=== PATIENT | female | born 1990 | race Hispanic/Latino ===

== ENCOUNTER 2020-06-27 18:28 | Emergency (ER) | payer OTHER ==
[2020-06-27 19:37] LABS: Absolute Lymphocytes (CBC) 3.7 K/uL (0.7-4.9); Basophils % 0.7 % (0-1.3); Hematocrit 38.8 % (36.0-45.0); Lymphocytes % 32.7 % (15.3-44.8); RBC Red Blood Cell Count 4.29 M/uL (3.86-4.86)
[2020-06-27] MEDS ORDERED: ONDANSETRON 4 MG/2 ML VIAL ONE (19:47)
[2020-06-27] MEDS ORDERED: NA CHLORIDE 0.9% 1,000 ML ONE (19:47)
[2020-06-27] MEDS ORDERED: KETOROLAC 30 MG/ML INJ ONE (19:47)
[2020-06-27 19:54] LABS: Albumin 3.6 g/dL (3.4-5.0); Bilirubin Direct 0.2 mg/dL (0-0.2); Bilirubin Total 0.5 mg/dL (0.2-1.0); Potassium 3.7 mmol/L (3.5-5.1); Protein, Total 7.5 g/dL (6.4-8.2)
--- NOTE | 2020-06-27 20:02 | ER ---
Nurse's Notes [facility] Name: Saranya Manuel Age: 29 yrs Sex: Female : 1990 Arrival Date: 06/27/2020 Time: 18:34 Bed 8 Private MD: Diagnosis: Diarrhea, unspecified;Lower abdominal pain, unspecified Presentation: 06/27 18:42 Chief complaint: Patient states: Abd pain since Thursday with diarrhea. No fever.. ll1 Coronavirus screen: Client denies travel out of the [place] in the last 14 days. At this time, the client does not indicate any symptoms associated with coronavirus-19. Ebola Screen: Patient denies travel to an Ebola-affected area in the 21 days before illness onset. Initial Sepsis Screen: Does the patient meet any 2 criteria? No. Patient's initial sepsis screen is negative. Does the patient have a suspected source of infection? Yes: Acute abdominal pain. Risk Assessment: Do you want to hurt yourself or someone else? Patient reports no desire to harm self or others. Onset of symptoms was June 23, 2020. 18:42 Method Of Arrival: Ambulatory 1 18:42 Acuity: KENYA 3 ll1 Triage Assessment: 20:31 General: Appears in no apparent distress. General: Behavior is calm, cooperative. Pain: rv Complains of pain in abdomen. GI: Abdomen is flat. Historical: - Allergies: 18:43 No Known Allergies; ll1 - PMHx: 20:27 None; sg - PSHx: 18:43 None; ll1 - Immunization history:: Flu vaccine is not up to date. - Social history:: Smoking status: Patient denies any tobacco usage or history of. Screenin:31 Abuse screen: Denies threats or abuse. Denies injuries from another. Nutritional rv screening: No deficits noted. Tuberculosis screening: No symptoms or risk factors identified. Fall Risk None identified. Assessment: 19:32 Reassessment: Patient appears in no apparent distress at this time. Patient and/or sg family updated on plan of care and expected duration. Pain level reassessed. 20:32 GI: Bowel sounds present X 4 quads. Abd is soft and non tender X 4 quads. Abd is non rv tender X 4 quads. Vital Signs: 18:42 BP 124 / 58; Pulse 81; Resp 16; Temp 98.2; Pulse Ox 97% ; Weight 58.97 kg; Height 5 ft. ll1 5 in. (165.10 cm); Pain 6/10; 20:20 BP 120 / 71; Pulse 77; Resp 18; Pulse Ox 100% on R/A; sg 18:42 Body Mass Index 21.63 (58.97 kg, 165.10 cm) ll1 ED Course: 18:34 Patient arrived in ED. mr 18:40 Tracy Stout F[facility]-C [facility]. kb 18:40 Estelle Philip MD is Attending Physician. kb 18:43 Triage completed. ll1 18:43 Arm band placed on Patient placed in an exam room, on a stretcher. ll1 19:14 Jeff Merrill, GUILLERMO is Primary Nurse. rv 19:20 Initial lab(s) drawn, by ut, sent to lab. Inserted saline lock: 22 gauge in left sg antecubital area, using aseptic technique. Blood collected. 19:30 Patient has correct armband on for positive identification. Placed in gown. Bed in low rv position. Call light in reach. 19:30 Pulse ox on. NIBP on. rv 20:32 No provider procedures requiring assistance completed. IV discontinued, intact, rv bleeding controlled, No redness/swelling at site. Pressure dressing applied. Administered Medications: 19:40 Drug: TORadol - Ketorolac 15 mg Route: IVP; Site: left antecubital; sg 20:26 Follow up: Response: No adverse reaction; Pain is decreased sg 19:40 Drug: NS 0.9% 1000 ml Route: IV; Rate: 1000 ml; Site: left antecubital; sg 19:44 Drug: Zofran (Ondansetron) 4 mg Route: IVP; Site: left antecubital; sg 20:26 Follow up: Response: No adverse reaction; Nausea is decreased sg Outcome: 20:02 Discharge ordered by . kb 20:32 Patient left the ED. sg Signatures: Tracy Stout FNP-C FNP-Dileep Rangel RN RN sg Heidy Hardy mr Jeff Merrill, RN GUILLERMO rv Michael Mares RN RN ll1
--- NOTE | 2020-06-27 20:03 | EDPHYS ---
Physician Documentation [facility] Name: Saranya Manuel Age: 29 yrs Sex: Female : 1990 Arrival Date: 06/27/2020 Time: 18:34 Bed 8 Private MD: ED Physician Estelle Philip HPI: 06/27 19:42 This 29 yrs old Female presents to ER via Ambulatory with complaints of kb Abdominal Pain. 19:42 The patient presents with abdominal pain in the left lower quadrant. Onset: The kb symptoms/episode began/occurred 4 day(s) ago. The symptoms do not radiate. Associated signs and symptoms: Pertinent positives: diarrhea, Pertinent negatives: nausea and vomiting, fever. The symptoms are described as constant. Modifying factors: The symptoms are alleviated by nothing, the symptoms are aggravated by nothing. Severity of pain: At its worst the pain was mild moderate in the emergency department the pain is unchanged. The patient has not experienced similar symptoms in the past. The patient has not recently seen a physician. Historical: - Allergies: 18:43 No Known Allergies; ll1 - PMHx: 20:27 None; sg - PSHx: 18:43 None; ll1 - Immunization history:: Flu vaccine is not up to date. - Social history:: Smoking status: Patient denies any tobacco usage or history of. ROS: 19:42 Constitutional: Negative for fever, chills, and weight loss, Cardiovascular: Negative kb for chest pain, palpitations, and edema, Respiratory: Negative for shortness of breath, cough, wheezing, and pleuritic chest pain, Back: Negative for injury and pain, MS/Extremity: Negative for injury and deformity, Skin: Negative for injury, rash, and discoloration, Neuro: Negative for headache, weakness, numbness, tingling, and seizure. 19:42 Abdomen/GI: Positive for abdominal pain, diarrhea, Negative for nausea and vomiting. Exam: 19:42 Constitutional: This is a well developed, well nourished patient who is awake, alert, kb and in no acute distress. Head/Face: Normocephalic, atraumatic. Chest/axilla: Normal chest wall appearance and motion. Nontender with no deformity. No lesions are appreciated. Cardiovascular: Regular rate and rhythm with a normal S1 and S2. No gallops, murmurs, or rubs. Normal PMI, no JVD. No pulse deficits. Respiratory: Lungs have equal breath sounds bilaterally, clear to auscultation and percussion. No rales, rhonchi or wheezes noted. No increased work of breathing, no retractions or nasal flaring. Abdomen/GI: Soft, non-tender, with normal bowel sounds. No distension or tympany. No guarding or rebound. No evidence of tenderness throughout. Skin: Warm, dry with normal turgor. Normal color with no rashes, no lesions, and no evidence of cellulitis. MS/ Extremity: Pulses equal, no cyanosis. Neurovascular intact. Full, normal range of motion. Neuro: Awake and alert, GCS 15, oriented to person, place, time, and situation. Cranial nerves II-XII grossly intact. Motor strength 5/5 in all extremities. Sensory grossly intact. Cerebellar exam normal. Normal gait. Vital Signs: 18:42 BP 124 / 58; Pulse 81; Resp 16; Temp 98.2; Pulse Ox 97% ; Weight 58.97 kg; Height 5 ft. ll1 5 in. (165.10 cm); Pain 6/10; 20:20 BP 120 / 71; Pulse 77; Resp 18; Pulse Ox 100% on R/A; sg 18:42 Body Mass Index 21.63 (58.97 kg, 165.10 cm) ll1 MDM: 18:44 Patient medically screened. kb 19:41 Data reviewed: vital signs, nurses notes. Data interpreted: Pulse oximetry: on room air kb is 97 %. Interpretation: normal. 20:01 Counseling: I had a detailed discussion with the patient and/or guardian regarding: the kb historical points, exam findings, and any diagnostic results supporting the discharge/admit diagnosis, lab results, radiology results, the need for outpatient follow up, a family practitioner, to return to the emergency department if symptoms worsen or persist or if there are any questions or concerns that arise at home. 06/27 19:06 Order name: Urine Dipstick--Ancillary (enter results) 06/27 19:06 Order name: Urine --Ancillary (enter results) 06/27 19:11 Order name: Basic Metabolic Panel; Complete Time: 20:01 kb 06/27 19:11 Order name: CBC with Diff; Complete Time: 20:01 kb 06/27 19:11 Order name: Hepatic Function; Complete Time: 20:01 kb 06/27 19:11 Order name: Lipase; Complete Time: 20:01 kb 06/27 19:11 Order name: IV Saline Lock; Complete Time: 19:31 kb 06/27 19:11 Order name: Labs collected and sent; Complete Time: 19:31 kb Administered Medications: 19:40 Drug: TORadol - Ketorolac 15 mg Route: IVP; Site: left antecubital; sg 20:26 Follow up: Response: No adverse reaction; Pain is decreased sg 19:40 Drug: NS 0.9% 1000 ml Route: IV; Rate: 1000 ml; Site: left antecubital; sg 19:44 Drug: Zofran (Ondansetron) 4 mg Route: IVP; Site: left antecubital; sg 20:26 Follow up: Response: No adverse reaction; Nausea is decreased sg Disposition: 06/27/20 20:02 Discharged to Home. Impression: Diarrhea, unspecified, Lower abdominal pain, unspecified. - Condition is Stable. - Discharge Instructions: Food Choices to Help Relieve Diarrhea, Adult, Abdominal Pain, Adult, [id number], Diarrhea, Adult, [id number]. - Prescriptions for Bentyl 20 mg Oral Tablet - take 1 tablet by ORAL route every 6 hours As needed; 20 tablet. - Medication Reconciliation Form, Thank You Letter, Antibiotic Education, Prescription Opioid Use, Work release form form. - Follow up: Emergency Department; When: As needed; Reason: Worsening of condition. Follow up: Private Physician; When: 2 - 3 days; Reason: Recheck today's complaints, Continuance of care, Re-evaluation by your physician. Signatures: Dispatcher [employer] EDCT Tracy Stout, LIFE ENRICHMENT SPECIALIST-C LIFE ENRICHMENT SPECIALIST-Dileep Rangel RN RN Michael Owens RN RN ll1 Corrections: (The following items were deleted from the chart) 20:32 20:02 06/27/2020 20:02 Discharged to Home. Impression: Diarrhea, unspecified; Lower sg abdominal pain, unspecified. Condition is Stable. Forms are Medication Reconciliation Form, Thank You Letter, Antibiotic Education, Prescription Opioid Use. Follow up: Emergency Department; When: As needed; Reason: Worsening of condition. Follow up: Private Physician; When: 2 - 3 days; Reason: Recheck today's complaints, Continuance of care, Re-evaluation by your physician. kb
[2020-06-27 20:30] LABS: Urine Blood TRACE (NEG); Urine Glucose NEGATIVE (NEG); Urine Protein NEGATIVE (NEG); Urine pH 5.5 (5.0-7.0)
[2020-06-27 21:00] VITALS: TEMP 98.2
[2020-06-27 21:01] VITALS: BP 120/71; O2SAT 100
== END 2020-06-27 20:32 | disposition home or self-care (01) ==
LOC: ER 18:28
DX: R19.7 Diarrhea, unspecified (principal)
CPT/HCPCS: 85025; 80048; 36415; 81025; 80076; 81003; 83690; 96375; 96374; 99284; J7030; J2405

== ENCOUNTER 2021-04-21 20:05 | Emergency (ER) | payer OTHER, SELFPAY ==
--- OUTSIDE RECORDS SUMMARY | 2021-04-21 20:29 | XMS REPORT | Continuity of Care Document ---
:1990 Author Organization [facility] t Address [address] [place] [address] Care Team Providers Name Role Phone Unavailable Unavailable Unavailable Payers Payer Name Policy Type Policy Number Effective Date Expiration Date S ource Problems This patient has no known problems. Allergies, Adverse Reactions, Alerts Allergy Allergy Status Severity Reaction(s) Onset Inactive Treating Comm ents Source Name Type Date Date Clinician No Known DA Active U [facility] Allergie 2-16 s 00:00: [address] Medications This patient has no known medications. Procedures This patient has no known procedures. Results This patient has no known results.
[2021-04-21 21:48] LABS: Urine Blood Trace-intact (Negative); Urine Glucose Negative (Negative); Urine Protein Negative (Negative); Urine Specific Gravity >=1.030 (1.005-1.030); Urine pH 5.5 (5.0-7.0)
[2021-04-21 22:04] LABS: Urine Specific Gravity/Preg >1.030 (1.005-1.030)
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
[2021-04-22 00:29] VITALS: BP 105/65; TEMP 98.9; O2SAT 97
== END 2021-04-22 00:22 | disposition left against medical advice (07) ==
LOC: ER 20:05
DX: Z53.21 Procedure and treatment not carried out due to patient leaving prior to being seen by health care provider (principal)
CPT/HCPCS: 81003; 81025; 99281

== ENCOUNTER 2023-03-27 00:01 | Emergency (ER) | payer SELFPAY ==
--- OUTSIDE RECORDS SUMMARY | 2023-03-27 00:24 | XMS REPORT | Continuity of Care Document ---
:1990 Author Organization Formerly [facility] t Address [address] [place] [address] [place] [id number] Care Team Providers Name Role Phone JOLLY BARTLETT Primary Care Physician Unavailable Jolly Perez Attending Clinician JOLLY BARTLETT Attending Clinician Unavailable Kaykay Silveira Attending Clinician [phone] KAYKAY HALL Attending Clinician Unavailable Doctor Unassigned, [place] Attending Clinician Unavailable Payers Payer Name Policy Type Policy Number Effective Date Expiration Date S [facility] MEDICAID PENDING PENDING 2021 2021 00:00:00 00:00:00 Problems Condition Condition Condition Status Onset Resolution Last Treating Co mments Source Name Details Category Date Date Treatment Clinician Date 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 - it y of 00:00: [address] Disease Active 2005-08 Uni vers with with 1-25 [place]y [place] [facility] Disease Active 2005-08 Uni vers examinatio examinatio 09-24 it y of n or test, [place] positive 00 Medica l result result Branch Allergies, Adverse Reactions, Alerts Allergy Allergy Status Severity Reaction(s) Onset Inactive Treating Comm ents Source Name Type Date Date Clinician No Known DA Active U [facility] [place] [facility] 00:[facility]: [address] NO KNOWN Drug Active Univers ALLERGIE Class ity of S [facility] Social History Social Habit Start Date Stop Date Quantity Comments Source ASSERTION 2021-09-02 University 00:00:00 [facility] Exposure to Not sure University of SARS-CoV-2 [facility] (event) Branch Alcohol intake 2021-11-18 2021-11-18 Ex-drinker [facility] 00:00:00 00:00:00 (finding) [facility] Tobacco use and 2021-10-21 2021-10-21 Never used Universit y of exposure 00:00:00 00:00:00 [facility] Sex Ass[birth year] At [birth year] Universit y of 00:00:00 00:00:00 [facility] Smoking Status Start Date Stop Date Source Never smoker [facility] Medications Ordered Filled Start Stop Current Ordering Indication Dosage Frequency Signature Comments Components Source Medication Medication Date Date Medication? Clinician (SIG) Name Name No known No Univers medications 3-21 ity of 09:29: [address] No known No Univers medications 3-21 ity of 09:29: [address] No known 2021-0 No Univers medications 3-21 ity of 09:29: [address] No known 0 No Univers medications 3-21 ity of 09:29: [address] MACROBID 2006-08- No take one Univ ers 100 MG ORAL 10-02 tab twice it y of CAP 00:00: 00:00 daily for [place] 00 :00 seven days [facility] Immunizations Ordered Filled Immunization Date Status Comments Sourc e Immunization Name Name SARS-COV-2 COVID-19 2021-09-25 Completed Unive rsity of PFIZER VACCINE 00:00:00 [facility] SARS-COV-2 COVID-19 2021-09-25 Completed Unive rsity of PFIZER VACCINE 00:00:00 [facility] SARS-COV-2 COVID-19 2021-09-25 Completed Unive rsity of PFIZER VACCINE 00:00:00 [facility] SARS-COV-2 COVID-19 2021-09-25 Completed Unive rsity of PFIZER VACCINE 00:00:00 [facility] SARS-COV-2 COVID-19 2021-09-25 Completed Unive rsity of PFIZER VACCINE 00:00:00 [facility] Vital Signs Vital Name Observation Time Observation Value Comments Source Systolic blood 2021-11-18 14:06:00 108 mm[Hg] Univer sity of pressure [facility] Diastolic blood 2021-11-18 14:06:00 70 mm[Hg] Unive rsity of pressure [facility] Heart rate 2021-11-18 14:06:00 77 /min Universi ty [facility] Body temperature 2021-11-18 14:06:00 36.39 Rosalia Univ ersity of [facility] Respiratory rate 2021-11-18 14:06:00 18 /min Univ ersity of [facility] Body height 2021-11-18 14:06:00 165.1 cm [facility] ty [facility] Body weight 2021-11-18 14:06:00 62.823 kg [facility] BMI 2021-11-18 14:06:00 23.05 kg/m2 [facility] Systolic blood 2021-10-21 14:58:00 103 mm[Hg] Univer sity of pressure [facility] Diastolic blood 2021-10-21 14:58:00 67 mm[Hg] Unive rsity of pressure [facility] Heart rate 2021-10-21 14:58:00 69 /min Univers ty [facility] Body temperature 2021-10-21 14:58:00 36.56 Rosalia Univ ersity of [facility] Respiratory rate 2021-10-21 14:58:00 16 /min Univ ersity of [facility] Body height 2021-10-21 14:58:00 165.1 cm [facility] ty [facility] Body weight 2021-10-21 14:58:00 63.368 kg [facility] BMI 2021-10-21 14:58:00 23.25 kg/m2 [facility] Procedures Procedure Date / Time Performed Performing Clinician [facility] POCT URINALYSIS 2021-11-18 14:07:00 Jolly Bartlett [facility] GLUCOSE 1 HOUR POST 2021-10-21 16:24:00 [facility] CBC WITH DIFF 2021-10-21 16:24:00 Jolly Bartlett [facility] RUBELLA SCREEN IGG 2021-10-21 16:24:00 Jolly Bartlett [facility] VZV ANTIBODY SCREEN 2021-10-21 16:24:00 Jolly Bartlett [facility] HEPATITIS B SURFACE 2021-10-21 16:24:00 [facility] HB ABO GROUPING 2021-10-21 16:24:00 Jolly Bartlett [facility] URINE CULTURE 2021-10-21 16:24:00 Jolly Bartlett [facility] HIV 1/2 AG-AB WITH 2021-10-21 16:24:00 Jolly Bartlett [facility] GALV ONLY - SYPHILIS 2021-10-21 16:24:00 Jolly Bartlett [facility] IGG/IGM [facility] POCT URINALYSIS W/O 2021-10-21 15:03:00 Jolly Bartlett [facility] SPECIFIC GRAVITY [facility] POCT TEST 2021-10-21 15:02:00 Jolly Bartlett [facility] Encounters Start End Encounter Admission Attending Care Care Encounter Source Date/Time Date/Time Type Type Clinicians Facility Department ID 2022-01-03 2022-01-03 Telephone TODD Bartlett [id number] [facility] 00:00:00 00:00:00 Jessicaa R BLOCK OPERATOR [id number] ity of REGIONAL [id number] Luis Antonio as MATERNAL [id number] Med ical & CHILD [address] [place] [address] 2022-01-01 2022-01-01 Outpatient Anoop BARTLETT [facility] [id number] Univers 13:00:00 13:00:00 JESSICAA mary janey o [facility] 2021-12-19 2021-12-19 [facility] [id number] Univers 10:30:00 10:30:00 JOLLY hintony o [facility] 2021-12-16 2021-12-16 [facility] [id number] Univers 08:45:00 08:45:00 JOLLY hintony o [facility] 2021-12-09 2021-12-09 Telephone [facility] [id number] Univers 00:00:00 00:00:00 Kaykay C BLOCK OPERATOR [id number] ity of REGIONAL [id number] Luis Antonio as MATERNAL [id number] Med ical & CHILD [address] [place] [address] 2021-11-19 2021-11-19 Outpatient Anoop BARTLETT [facility] [id number] Univers 08:45:00 08:45:00 JESSICAA mary janey o [facility] 2021-11-19 2021-11-19 Outpatient Anoop BARTLETT [facility] [id number] Univers 08:45:00 08:45:00 ORLANDONDA ity o [facility] 2021-11-18 2021-11-18 Outpatient R [facility] [id number] Univers 09:00:00 09:29:24 KAYKAY ity o [facility] 2021-11-18 2021-11-18 Routine [facility] [id number] Univers 09:00:00 09:29:24 Kaykay C BLOCK OPERATOR [id number] ity of Visit REGIONAL [id number] Luis Antonio as MATERNAL [id number] Med ical & CHILD [address] [place] [address] 2021-10-21 2021-10-21 [facility] [id number] Univers 08:30:00 09:44:23 [facility] barb o [facility] 2021-10-21 2021-10-21 Initial Jolly Bartlett Anoop [facility] [id number] Univers 08:30:00 09:44:23 AkinKaykay pena BLOCK OPERATOR [id number] ity of Visit [facility] [id number] Luis Antonio as MATERNAL [id number] [facility] & [address] 2021-10-21 2021-10-21 Outpatient Anoop BARTLETT [facility] [id number] Univers 08:30:00 09:44:23 [facility] 2021-10-21 2021-10-21 [facility] [id number] Univers 08:30:00 09:44:23 [facility] 2021-10-21 2021-10-21 Orders Doctor NICHOLE [id number] Univers 00:00:00 00:00:00 Only Unassigned, WIL[place] [id number] ity of [place] [facility] [id number] Luis Antonio as [id number] [address] Results Test Description Test Time Test Comments Results Result Comments Source POCT URINALYSIS W SPECIFIC GRAVITY 2021-11-18 14:07:00 Test Item Value Reference Range Interpretation Comme nts POCT U SP GRAV (test code = 3255) . 1.005-1.025 POCT PH U (test code = 3254) . 5-8 POCT U LEUK EST (test code = 3263) . Negative - Negative POCT U NIT (test code = 3262) . Negative - Negative POCT U PROT (test code = 3259) 1+ Negative - Negative POCT U GLU (test code = 3256) Neg Negative - Negative POCT U KETONE (test code = 3258) . Negative - Negative POCT U UROBILI (test code = 3260) . 0.2-1 POCT U BILI (test code = 3261) . Negative - Negative POCT U BLD (test code = 3257) . Negative - Negative POCT U COLOR (test code = 3266) POCT U APPEAR (test code = 3267) [facility] SPECIFIC [id number] 14:07:00 Test Item Value Reference Range Interpretation Comments POCT U SP GRAV (test code = 3255) . 1.005-1.025 POCT PH U (test code = 3254) . 5-8 POCT U LEUK EST (test code = 3263) . Negative - Negative POCT U NIT (test code = 3262) . Negative - Negative POCT U PROT (test code = 3259) 1+ Negative - Negative POCT U GLU (test code = 3256) Neg Negative - Negative POCT U KETONE (test code = 3258) . Negative - Negative POCT U UROBILI (test code = 3260) . 0.2-1 POCT U BILI (test code = 3261) . Negative - Negative POCT U BLD (test code = 3257) . Negative - Negative POCT U COLOR (test code = 3266) POCT U APPEAR (test code = 3267) [facility] (MYRIAM) [id number] 16:44:26 Test Item Value Reference Range Interpretation Comments Rubella screen IgG Positive Negative (test code = 0584724252) OPAL (test code = OPAL) Positive - Indicates the patient was exposed to Rubella through infection or vaccination.Negative - Indicates the patient could be susceptible to Rubella infection.Equivocal - A second specimen should be sent. [facility] [id number] 16:44:26 Test Item Value Reference Range Interpretation Comments VZV IgG antibody Positive Negative (test code = 07168-9) OPAL (test code = OPAL) Positive - Indicates the patient was exposed to VZV through infection or vaccination.Negative - Indicates the patient could be susceptible to VZV infection.Equivocal - A second specimen should be sent for testing. [facility] [place] [id number] 15:27:18 Test Item Value Reference Range Interpretation Comments Syphilis IgG/IgM (test Non-reactive Non-reactive code = 72649-0) OPAL (test code = OPAL) Non-reactive - No serologic evidence of T. pallidum infection. Cannot exclude incubating or early syphilis. Submit a second specimen in 2-4 weeks if syphilis is clinically suspected. Equivocal - Further testing to follow. Reactive - Further testing to follow. Lab Interpretation (test Normal code = 20101-9) [facility] WORKUP, BLOOD [id number] 09:23:49 Test Item Value Reference Range Interpretation Comments ABO & RH (test code A POSITIVE Performe d at [facility] = 20) Laboratory Serv [facility]3 01 [facility] s [id number] Free: [phone] A No. [id number] IAT (test code = Negative Performed a t [facility] 1185) Laboratory Serv [facility] 01 [facility] s [id number] Free: [phone] A No. [id number] [facility]/2 AG-AB WITH [id number] 08:03:10 Test Item Value Reference Range Interpretation Comments HIV Negative Negative Semi-quantitative (test code = 35986-3) OPAL (test code = Non-reactive for HIV-1 OPAL) antigen and HIV-1/HIV-2 antibodies. ?No laboratory evidence of HIV infection. ?Repeat in 2-4 weeks if acute HIV infection is suspected. [facility] CenterHEPATITIS B SURFACE [id number] 07:08:48 Test Item Value Reference Range Interpretation Comments HBsAg Semi-Quantitative (test code = Negative Negative 5195-3) [facility] 1 HOUR POST [id number] 06:38:02 Test Item Value Reference Range Interpretation Comments GLUC 1 HR (test code = 0168633140) 102 mg/dL 120-170 L Lab Interpretation (test code = Abnormal 92359-2) [facility] CenterCB WITH [id number] 06:26:37 Test Item Value Reference Range Interpretation Comments WBC (test code = See_Comment [Automated 6690-2) message] The sy stem which generated this result transmitted reference range : 4.30 - 11.10 10*3/?L. The reference range was not used to interpret this result as normal/abnormal . RBC (test code = See_Comment [Automated 789-8) message] The sy stem which generated this result transmitted reference range : 3.93 - 5.25 10*6/?L. The reference range was not used to interpret this result as normal/abnormal . HGB (test code = 13.4 g/dL 11.6-15.0 718-7) HCT (test code = 40.1 % 35.7-45.2 4544-3) MCV (test code = 89.3 fL 80.6-95.5 787-2) MCH (test code = 29.8 pg 25.9-32.8 785-6) MCHC (test code = 33.4 g/dL 31.6-35.1 786-4) RDW-SD (test code = 39.9 fL 39.0-49.9 07372-3) RDW-CV (test code = 12.2 % 12.0-15.5 788-0) PLT (test code = See_Comment [Automated 777-3) message] The sy stem which generated this result transmitted reference range : 166 - 358 10*3/ ?L. The reference r mae was not used to interpret this result as normal/abnormal . MPV (test code = 11.6 fL 9.5-12.9 54157-1) NRBC/100 WBC (test See_Comment [Automat ed code = 7104788807) message] The system which generated this result transmitted reference range : 0.0 - 10.0 /100 WBCs. The refer ence range was not u sed to interpret th is result as normal/abnormal . NRBC x10^3 (test code <0.01 See_Comment [Auto mated = 0208234103) message] The s ystem which generated this result transmitted reference range : 10*3/?L. The reference range was not used to interpret this result as normal/abnormal . GRAN MAT (NEUT) % 71.8 % (test code = 770-8) IMM GRAN % (test code 0.30 % = 7359133033) LYMPH % (test code = 20.2 % 736-9) MONO % (test code = 5.6 % 5905-5) EOS % (test code = 1.6 % 713-8) BASO % (test code = 0.5 % 706-2) GRAN MAT x10^3(ANC) 7.91 10*3/uL 1.88-7.09 H (test code = 8289802189) IMM GRAN x10^3 (test 0.03 10*3/uL 0.00-0.06 code = 3882676570) LYMPH x10^3 (test code 2.23 10*3/uL 1.32-3.29 = 731-0) MONO x10^3 (test code 0.62 10*3/uL 0.33-0.92 = 742-7) EOS x10^3 (test code = 0.18 10*3/uL 0.03-0.39 711-2) BASO x10^3 (test code 0.05 10*3/uL 0.01-0.07 = 704-7) Lab Interpretation Abnormal (test code = 35146-0) [facility] CenterPO[facility] URINAL[facility] W/O SPECIFIC [id number] 15:05:00 Test Item Value Reference Range Interpretation Comments POCT PH U (test code = 3254) 6 mg/dl 5-8 POCT U LEUK EST (test code = trace Negative - Negative 3263) POCT U NIT (test code = 3262) neg Negative - Negative POCT U PROT (test code = 3259) 1+ Negative - Negative POCT U GLU (test code = 3256) neg Negative - Negative POCT U KETONE (test code = 3258) neg Negative - Negative POCT U BLD (test code = 3257) large Negative - Negative [facility]PO[facility] [id number] 15:03:00 Test Item Value Reference Range Interpretation Comments POCT PREG (test code = 1605) Positive On board controls acceptable with C Yes Line (test code = 3574) POCT PREG LOT # (test code = 3575) POCT PREG TEST DATE (test code = 3576) [facility] Notes Date/Time Note Provider Source 2019-03-09 09:29:00-00:00 [facility] ([facility]) EMERGENCY PROVIDER REPORT REPORT#:[id number] REPORT STATUS: Signed DATE:03/09/19 TIME: 928 PATIENT: BERNADINE TOWNSEND UNIT #: [id number] ROOM/BED: AGE: 28 SEX: F PCP PHYS: Hernandez Stack MD SERVICE AUTHOR: Javier Macedo NP LOCATION: [facility] * ALL edits or amendments must be made on the Ohmx/computer document * HPI-Sore Throat General Confirmed Patient Yes Initial Greet Date/Time 03/09/19 09 Presentation Chief Complaint Sore throat, Pain with swallowin g Hx Obtained From Patient Onset Occurred Days ago (2) Symptom Duration Since onset Progression since Onset Constant Location Pharynx, Tonsil R, Tonsil L Severity: Onset Moderate Severity: Current Moderate Associated with Denies: Choking, Cough, Fever, Neck pain , Reduced oral intake, Restricted neck movement, Rhinorrhea, Swelling, neck, Swelling, tongue. Free Text HPI Notes Free Text HPI Notes 28 F with no PMHx c/o sore throat x 2 days with pain with swallowing. Denies fever or neck pain or sick contact at home. Review of Systems ROS Statements All systems rev neg except as marked. Focused Review of Systems Constitutional Denies: Chills, Fatigue, Fever, Lethargy, [place], Recent wt loss, Weakness - generalized. Ears/Nose/Throat Reports: Sore throat. Denies: Earache R, Earache L. Respiratory Denies: Cough, productive, Shortness of breath, Wheezing. GI Denies: Abdominal pain, Diarrhea, Nausea, Vomiti ng. Musculoskeletal Denies: Back pain, Extremity pain. Skin Denies: Diaphoresis, Rash. Neurologic Denies: Change LOC, Dizziness, Focal weakness, H eadache, Numbness, Slurred speech. Past Medical History - Adult Stated Complaint SORE THROAT Allergies Coded Allergies: No Known Allergies (10/16/11) Home Medications Reported Medications No Known Home Medications Review of Nursing Notes Rev avail, and agree (re veiwed) Physical Exam Vital Signs Vital Signs First Documented: Result Date Time Pulse Ox 98 03/09 941 B/P 106/73 03/09 941 B/P Mean 84 03/09 941 O2 Delivery Room air 03/09 941 Temp 36.8 03/09 941 Pulse 86 03/09 941 Resp 16 03/09 941 Last Documented: Result Date Time Pulse Ox 98 03/09 0941 B/P 106/73 03/09 09 B/P Mean 84 03/09 0941 O2 Delivery Room air 03/09 941 Temp 36.8 03/09 09 Pulse 86 03/09 941 Resp 16 03/09 09 Review of Vital Signs Reviewed Focused PE General/Const General/Const Awake, Alert, Cooperative, Not to xic appearing Ears/Nose/Throat Pharynx/Tonsils/Uvula Pharyngeal erythema, Tonsillar erythema R, Tons illar erythema L, Tonsillar exudate R, Tonsillar exudate L, Tonsillar swelli ng R. Negative: Peritonsil abscess R, Peritonsil abscess L, Trismus present , Epiglottis enlarged. MS Neck Neck Supple, No meningismus, Full range of rabia on Resp/Chest Respiratory/Chest No wheezing, No retractions Cardiovascular Cardiovascular Regular rhythm, Cap refi ll not delayed, Peripheral circulation NL Abdomen/GI Abdomen/GI Soft, BS normoactive, No distention Lymphatic Adenopathy Anterior cervical R, Anterior cervical L. Skin Skin Color NL, No rash Neurologic Neurologic Oriented X3, Speech NL Interpretation Diagnostics Lab Results Interpretation Results Microbiology: Date/Time Procedure - Status Source Growth 03/09 930 Group A Streptococcus Screen (SHANIA) - RECD THROAT Re-Evaluation MDM ED Course Medication(s) Ordered Medication(s) Ordered: Eye, Ear, Nose And Throat (Een Sig/Yumi Start time Last Medication Dose Route Stop Time Status Admin Dexamethasone Sodium 10 MG X1ED STA 03/09 933 DC 03/09 Phosphate IM 03/09 0934 0950 Patient Discharge Departure Vital Signs/Condition Vital Signs First Documented: Result Date Time Pulse Ox 98 03/09 0941 B/P 106/73 03/09 941 B/P Mean 84 03/09 0941 O2 Delivery Room air 03/09 941 Temp 36.8 03/09 941 Pulse 86 03/09 941 Resp 16 03/09 941 Last Documented: Result Date Time Pulse Ox 98 03/09 0941 B/P 106/73 03/09 0941 B/P Mean 84 03/09 0941 O2 Delivery Room air 03/09 941 Temp 36.8 03/09 941 Pulse 86 03/09 941 Resp 16 03/09 941 All vital signs available at the time of this en try have been reviewed. Clinical Impression Clinical Impression Primary Impression: Tonsillitis Disposition Decision Discharge )( Discharged to Home Yes )( Time 09 )( Date 03/09/19 Discharge/Care Plan Counseled Regarding Diagnosi s, Prescriptions, Need for follow-up, When to return to ED Prescriptions amox motrin Electronically Signed by Javier Macedo NP on 03/09 at 1009 RPT #:[id number] END OF REPORT 2019-03-09 09:29:00-00:00 [facility] ([facility] EMERGENCY PROVIDER REPORT REPORT#:[id number] REPORT STATUS: Signed DATE:03/09/19 TIME: 928 PATIENT: BERNADINE TOWNSEND UNIT #: [id number] ROOM/BED: AGE: 28 SEX: F PCP PHYS: Hernandez Stack MD SERVICE AUTHOR: Javier Macedo NP LOCATION: [facility] * ALL edits or amendments must be made on the Ohmx/computer document * HPI-Sore Throat General Confirmed Patient Yes Initial Greet Date/Time 03/09/19925 Presentation Chief Complaint Sore throat, Pain with swallowin g Hx Obtained From Patient Onset Occurred Days ago (2) Symptom Duration Since onset Progression since Onset Constant Location Pharynx, Tonsil R, Tonsil L Severity: Onset Moderate Severity: Current Moderate Associated with Denies: Choking, Cough, Fever, Neck pain , Reduced oral intake, Restricted neck movement, Rhinorrhea, Swelling, neck, Swelling, tongue. Free Text HPI Notes Free Text HPI Notes 28 F with no PMHx c/o sore throat x 2 days with pain with swallowing. Denies fever or neck pain or sick contact at home. Review of Systems ROS Statements All systems rev neg except as marked. Focused Review of Systems Constitutional Denies: Chills, Fatigue, Fever, Lethargy, Malais e, Recent wt loss, Weakness - generalized. Ears/Nose/Throat Reports: Sore throat. Denies: Earache R, Earache L. Respiratory Denies: Cough, productive, Shortness of breath, Wheezing. GI Denies: Abdominal pain, Diarrhea, Nausea, Vomiti ng. Musculoskeletal Denies: Back pain, Extremity pain. Skin Denies: Diaphoresis, Rash. Neurologic Denies: Change LOC, Dizziness, Focal weakness, H eadache, Numbness, Slurred speech. Past Medical History - Adult Stated Complaint SORE THROAT Allergies Coded Allergies: No Known Allergies (10/16/11) Home Medications Reported Medications No Known Home Medications Review of Nursing Notes Rev avail, and agree (re veiwed) Physical Exam Vital Signs Vital Signs First Documented: Result Date Time Pulse Ox 98 / 0941 B/P 106/73 03/09 0941 B/P Mean 84 / 0941 O2 Delivery Room air 03/09 941 Temp 36.8 / 0941 Pulse 86 / 0941 Resp 16 03/09 0941 Last Documented: Result Date Time Pulse Ox 98 / 0941 B/P 106/73 / 0941 B/P Mean 84 / 0941 O2 Delivery Room air 03/09 941 Temp 36.8 / 0941 Pulse 86 / 0941 Resp 16 03/09 0941 Review of Vital Signs Reviewed Focused PE General/Const General/Const Awake, Alert, Cooperative, Not to xic appearing Ears/Nose/Throat Pharynx/Tonsils/Uvula Pharyngeal erythema, Tonsillar erythema R, Tons illar erythema L, Tonsillar exudate R, Tonsillar exudate L, Tonsillar swelli ng R. Negative: Peritonsil abscess R, Peritonsil abscess L, Trismus present , Epiglottis enlarged. MS Neck Neck Supple, No meningismus, Full range of rabia on Resp/Chest Respiratory/Chest No wheezing, No retractions Cardiovascular Cardiovascular Regular rhythm, Cap refi ll not delayed, Peripheral circulation NL Abdomen/GI Abdomen/GI Soft, BS normoactive, No distention Lymphatic Adenopathy Anterior cervical R, Anterior cervical L. Skin Skin Color NL, No rash Neurologic Neurologic Oriented X3, Speech NL Interpretation Diagnostics Lab Results Interpretation Results Microbiology: Date/Time Procedure - Status Source Growth 03/09 930 Group A Streptococcus Screen (SHANIA) - RECD THROAT Re-Evaluation MDM ED Course Medication(s) Ordered Medication(s) Ordered: Eye, Ear, Nose And Throat (Een Sig/Yumi Start time Last Medication Dose Route Stop Time Status Admin Dexamethasone Sodium 10 MG X1ED STA 03/09 933 DC 03/09 Phosphate IM 03/09 934 0950 Patient Discharge Departure Vital Signs/Condition Vital Signs First Documented: Result Date Time Pulse Ox 98 03/09 941 B/P 106/73 03/09 941 B/P Mean 84 03/09 0941 O2 Delivery Room air 03/09 941 Temp 36.8 03/09 941 Pulse 86 03/09 941 Resp 16 03/09 941 Last Documented: Result Date Time Pulse Ox 98 03/09 941 B/P 106/73 03/09 941 B/P Mean 84 03/09 09 O2 Delivery Room air 03/09 941 Temp 36.8 03/09 09 Pulse 86 03/09 09 Resp 16 03/09 941 All vital signs available at the time of this en try have been reviewed. Clinical Impression Clinical Impression Primary Impression: Tonsillitis Disposition Decision Discharge )( Discharged to Home Yes )( Time 0949 )( Date 03/09/19 Discharge/Care Plan Counseled Regarding Diagnosi s, Prescriptions, Need for follow-up, When to return to ED Prescriptions amox motrin Electronically Signed by Javier Macedo NP on 03/09 at 1009 Electronically Signed by Bjorn Gary MD on 02/28 12/17 at 1400 RPT #:[id number] END OF REPORT
[2023-03-27 00:39] LABS: Absolute Lymphocytes (CBC) 3.5 K/uL (0.7-4.9); Hematocrit 38.3 % (36.0-45.0); Lymphocytes % 38.8 % (15.3-44.8); MCV 89.4 fL (80-100); MPV 8.3 fL (7.6-11.3); RBC Red Blood Cell Count 4.29 M/uL (3.86-4.86)
[2023-03-27 00:47] LABS: Specific Gravity 1.018 (1.005-1.030); Urine Bacteria None Seen /HPF (<20); Urine Bilirubin NEGATIVE (Negative); Urine Blood 3+ (OVER) (Negative); Urine Clarity Clear (Clear); Urine Color Light-Yellow (Yellow); Urine Glucose NEGATIVE (Negative); Urine Mucus Slight /HPF (None Seen); Urine Protein NEGATIVE (Negative); Urine RBC >50 /HPF (None Seen); Urine Urobilinogen Normal (Normal); Urine pH 6.5 (5.0-7.0)
[2023-03-27 00:54] LABS: Potassium 3.7 mEq/L (3.5-5.1)
--- NOTE | 2023-03-27 02:26 | EDPHYS ---
Physician Documentation [facility] Name: Saranya Benavidez Age: 32 yrs Sex: Female : 1990 Arrival Date: 03/27/2023 Time: 00:01 Bed IW2 Private MD: ED Physician Ariel Paulino HPI: 03/27 00:30 This 32 yrs old Female presents to ER via Ambulatory with complaints of cp IRREGULAR MENSTRUAL CYCLE. 00:30 The patient presents with vaginal bleeding that is heavy, with no clots. Onset: The cp symptoms/episode began/occurred today. Associated signs and symptoms: The patient has no apparent associated signs or symptoms. Severity of symptoms: in the emergency department the symptoms are unchanged, despite home interventions. The patient's method of control includes nothing. Patient reports heavy vaginal bleeding with passage of clots and concerned that bleeding started today even though she had a regular menstrual cycle about 2 weeks ago. 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 - Social history:: Smoking status: Patient denies any tobacco usage or history of. ROS: 00:35 Constitutional: Negative for body aches, chills, fever, poor PO intake. cp 00:35 Eyes: Negative for injury, pain, redness, and discharge. cp 00:35 Cardiovascular: Negative for chest pain, palpitations. 00:35 Respiratory: Negative for cough, shortness of breath, wheezing. 00:35 Abdomen/GI: Negative for abdominal pain, vomiting, diarrhea, constipation. 00:35 : Positive for vaginal bleeding, Negative for urinary symptoms. 00:35 Neuro: Negative for altered mental status, dizziness, headache, syncope, weakness. 00:35 All other systems are negative. Exam: 00:40 Constitutional: The patient appears in no acute distress, alert, awake, comfortable, cp non-toxic, well developed, well nourished. 00:40 Head/Face: Normocephalic, atraumatic. cp 00:40 Eyes: Periorbital structures: appear normal, Conjunctiva: normal, no exudate, no injection, Sclera: no appreciated abnormality, Lids and lashes: appear normal, bilaterally. 00:40 ENT: External ear(s): are unremarkable, Nose: is normal, Mouth: Lips: moist, Oral mucosa: moist, Posterior pharynx: is normal, airway is patent, no erythema, no exudate. 00:40 Chest/axilla: Inspection: normal. 00:40 Cardiovascular: Rate: normal, Rhythm: regular. 00:40 Respiratory: the patient does not display signs of respiratory distress, Respirations: normal, no use of accessory muscles, no retractions, labored breathing, is not present, Breath sounds: are clear throughout, no decreased breath sounds, no stridor, no wheezing. 00:40 Abdomen/GI: Exam negative for discomfort, distension, guarding, Inspection: abdomen appears normal. 00:40 Back: pain, is absent, ROM is normal. 00:40 Neuro: Orientation: to person, place \T\ time. Mentation: is normal, Motor: moves all fours, strength is normal, Gait: is steady, at a normal pace, without difficulty. Vital Signs: 00:13 BP 102 / 66; Pulse 60; Resp 16; Temp 98.2(O); Pulse Ox 100% ; Weight 68.04 kg; Height 5 kl ft. 5 in. ; Pain 5/10; 02:32 BP 118 / 64; Pulse 77; Resp 16; Pulse Ox 99% on R/A; kl 00:13 Body Mass Index 24.96 (68.04 kg, 165.1 cm) kl 00:13 Pain Scale: Adult kl MDM: 00:17 Patient medically screened. cp 01:00 Differential diagnosis: ectopic , molar preganancy, Neoplasm vaginosis. cp 02:25 Data reviewed: vital signs, nurses notes, lab test result(s), radiologic studies, cp ultrasound. 02:25 Counseling: I had a detailed discussion with the patient and/or guardian regarding: the cp historical points, exam findings, and any diagnostic results supporting the discharge/admit diagnosis, lab results, radiology results, the need for outpatient follow up, an OB/Gyne specialist, to return to the emergency department if symptoms worsen or persist or if there are any questions or concerns that arise at home. 03/27 00:20 Order name: Basic Metabolic Panel; Complete Time: 01:02 cp 03/27 01:03 Interpretation: Reviewed. cp 03/27 00:20 Order name: CBC with Diff; Complete Time: 01:02 cp 03/27 00:20 Order name: Urinalysis w/ reflexes; Complete Time: 01:02 cp 03/27 01:03 Interpretation: Normal except: UBLD 3+ (OVER); URBC >50. cp 03/27 00:20 Order name: Test, Serum; Complete Time: 01:07 cp 03/27 01:07 Interpretation: Reviewed. cp 03/27 00:20 Order name: US Pelvis Complete cp 03/27 00:20 Order name: IV Saline Lock; Complete Time: 00:39 cp 03/27 00:20 Order name: Labs collected and sent; Complete Time: 00:39 cp 03/27 00:20 Order name: NPO; Complete Time: 00:39 cp Administered Medications: No medications were administered Disposition Summary: 03/27/23 02:25 Discharge Ordered Location: Home cp Problem: new cp Symptoms: are unchanged cp Condition: Stable cp Diagnosis - Other specified abnormal uterine and vaginal bleeding cp Followup: cp - With: Cristina Lin MD - When: 1 week - Reason: Recheck today's complaints Followup: cp - With: Cristina Lin MD - When: 1 week - Reason: symptoms continue Discharge Instructions: - Discharge Summary Sheet cp - Abnormal Uterine Bleeding cp Forms: - Medication Reconciliation Form cp - Thank You Letter cp - Antibiotic Education cp - Prescription Opioid Use cp - Patient Portal Instructions cp Addendum: 03/30/2023 09:59 Co-signature as Attending Physician, Ariel Paulino MD I reviewed the patient's care r t provided by the Advanced Practice Provider and agree with the diagnosis and treatment plan. Signatures: Dispatcher [employer] Ladi Belle RN RN Juan Still PA PA cp Ariel Paulino MD MD rt
--- NOTE | 2023-03-27 02:26 | ER ---
Nurse's Notes [facility] Name: Saranya Benavidez Age: 32 yrs Sex: Female : 1990 Arrival Date: 03/27/2023 Time: 00:01 Bed IW2 Private MD: Diagnosis: Other specified abnormal uterine and vaginal bleeding Presentation: 03/27 00:13 Chief complaint: Patient states: "I came to get checked out because I have had my kl period twice this month and I am passing blood clots." pt reports abdominal cramping. Pt states going through 2 pads per hour. Coronavirus screen: Vaccine status: Patient reports receiving the 2nd dose of the covid vaccine. Ebola Screen: No symptoms or risks identified at this time. Initial Sepsis Screen: Does the patient meet any 2 criteria? No. Patient's initial sepsis screen is negative. Does the patient have a suspected source of infection? No. Patient's initial sepsis screen is negative. Risk Assessment: Do you want to hurt yourself or someone else? Patient reports no desire to harm self or others. Onset of symptoms was March 27, 2023. 00:13 Method Of Arrival: Ambulatory kl 00:13 Acuity: KENYA 3 kl Triage Assessment: 00:16 General: Appears in no apparent distress. comfortable, Behavior is calm, cooperative. kl Pain: Complains of pain in suprapubic area. 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 - Social history:: Smoking status: Patient denies any tobacco usage or history of. Screenin:32 [facility] ED Fall Risk Assessment (Adult) History of falling in the last 3 months, including since admission No falls in past 3 months (0 pts) Confusion or Disorientation No (0 pts) Intoxicated or Sedated No (0 pts) Impaired Gait No (0 pts) Mobility Assist Device Used No (0 pt) Altered Elimination No (0 pt). Abuse screen: Denies threats or abuse. Nutritional screening: No deficits noted. Tuberculosis screening: No symptoms or risk factors identified. Assessment: 02:00 General: Appears in no apparent distress. comfortable, Behavior is calm, cooperative. kl Pain: Denies pain. Neuro: No deficits noted. Cardiovascular: No deficits noted. Respiratory: No deficits noted. GI: No deficits noted. No signs and/or symptoms were reported involving the gastrointestinal system. : No deficits noted. No signs and/or symptoms were reported regarding the genitourinary system. : No signs and/or symptoms were reported regarding the genitourinary system. Reports vaginal bleeding that is with clots, moderate flow. Vital Signs: 00:13 BP 102 / 66; Pulse 60; Resp 16; Temp 98.2(O); Pulse Ox 100% ; Weight 68.04 kg; Height 5 kl ft. 5 in. ; Pain 5/10; 02:32 BP 118 / 64; Pulse 77; Resp 16; Pulse Ox 99% on R/A; kl 00:13 Body Mass Index 24.96 (68.04 kg, 165.1 cm) kl 00:13 Pain Scale: Adult ED Course: 00:03 Patient arrived in ED. [email or web address] 00:03 Juan Tapia PA is PHCP. cp 00:03 Ariel Paulino MD is Attending Physician. cp 00:15 Triage completed. kl 00:16 Arm band placed on Patient placed in waiting room. kl 00:39 Test, Serum Sent. bc6 00:39 Basic Metabolic Panel Sent. bc6 00:39 CBC with Diff Sent. bc6 00:39 Urinalysis w/ reflexes Sent. bc6 00:39 Inserted saline lock: 22 gauge in right antecubital area, using aseptic technique. bc6 Blood collected. 01:14 US Pelvis Complete In Process Unspecified. EDMS 02:24 Cristina Lin MD is Referral Physician. cp 02:25 Referral Physician role handed off by Cristina Lin MD cp 02:25 Cristina Lin MD is Referral Physician. cp 02:32 Patient has correct armband on for positive identification. kl 02:32 No provider procedures requiring assistance completed. IV discontinued, intact, kl bleeding controlled, No redness/swelling at site. Pressure dressing applied. Administered Medications: No medications were administered Medication: 02:32 VIS not applicable for this client. kl Outcome: 02:25 Discharge ordered by . cp 02:32 Discharged to home ambulatory, with family. anuel 02:32 Condition: stable 02:32 Discharge instructions given to patient, Instructed on discharge instructions, follow up and referral plans. Demonstrated understanding of instructions, follow-up care. 02:33 Patient left the ED. kl Signatures: Dispatcher [employer] Ladi Belle RN RN Juan Still, Promise Pham cp [email or web address] Fadia Ortega bc6
[2023-03-27 02:48] VITALS: TEMP 98.2
[2023-03-27 02:50] VITALS: BP 118/64; O2SAT 99
--- NOTE | 2023-03-27 12:45 | RAD REPORT ---
EXAM DESCRIPTION: US - Pelvis Complete - 03/27/2023 1:12 am CLINICAL HISTORY: VAGINAL BLEEDING TECHNIQUE: Real-time complete transabdominal pelvic ultrasound with image documentation. COMPARISON: No relevant prior studies available. FINDINGS: Uterus/cervix: The uterus is anteverted and measures 7.9 x 4.7 x 5.1 cm. The endometri al stripe measures 6 mm in thickness. No myometrial mass. Right ovary: The right ovary measures 3.4 x 1.6 x 2.1 cm. Normal blood flow. Left ovary: The left ovary is not visualized. Free fluid: No free fluid. Bladder: Unremarkable as visualized. Wall is normal thickness for degree of distention. IMPRESSION: No focal abnormality. Electronically signed by: Jaden Cardenas MD 03/27/2023 2:15 AM CDT Due to temporary technical issues with the PACS/Fluency reporting system, reports are being signed by the in house radiologists without review as a courtesy to insure prompt reporting. The interpreting radiologist is fully responsible for the content of the report.
== END 2023-03-27 02:33 | disposition home or self-care (01) ==
LOC: ER 00:01
DX: N93.8 Other specified abnormal uterine and vaginal bleeding (principal)
CPT/HCPCS: 36415; 76856; 80048; 81001; 84703; 85025; 99283